=== PATIENT | female | born 1965 | race Caucasian/White ===

== ENCOUNTER → 2021-05-19 | Outpatient (CLI) | payer OTHER ==
[2021-05-20 08:15] LABS: COMPLEMENT C3, SERUM 177 mg/dL (82-167); COMPLEMENT C4, SERUM 38 mg/dL (12-38); HBSAG SCREEN Negative (Negative); HCV AB <0.1 (0.0-0.9); HEP B CORE AB, TOT Negative (Negative); RHEUMATOID ARTHRITIS FACTOR <10.0 IU/mL (0.0-13.9)
[2021-05-22 18:09] LABS: QUANTIFERON MITOGEN VALUE >10.00 IU/mL (.); QUANTIFERON TB1 AG VALUE 0.12 IU/mL (.); QUANTIFERON TB2 AG VALUE 0.12 IU/mL (.); QUANTIFERON-TB GOLD PLUS Negative (Negative)
== END ==
LOC: LAB 10:00
PROVIDERS: Internal Medicine
DX: Z11.59 Encounter for screening for other viral diseases (principal); D89.89 Other specified disorders involving the immune mechanism, not elsewhere classified; R76.0 Raised antibody titer; M25.50 Pain in unspecified joint; I31.9 Disease of pericardium, unspecified; R76.8 Other specified abnormal immunological findings in serum; Z98.890 Other specified postprocedural states
CPT/HCPCS: 36415; 81001; 82570; 82728; 83520; 84156; 86160; 86162; 86200; 86431; 86704; 86803; 87340